=== PATIENT | female | born 1965 | race Caucasian/White ===

== ENCOUNTER → 2016-04-23 | Outpatient (CLI) | payer OTHER ==
[~2016-04-23] MED LIST: /ONDA4TA OR; /PANT40TA PO; /SUCR1TA PO; ATIV0.5T PO; ATIV1TAB10 PO; DRIS50002 PO; HYDR10T PO; LORA0.5T OR; PAXI10TA OR; PAXI20TA3 PO; PROT1TAB2 PO; ZOFR8TAB PO
== END ==
LOC: M WUC 08:20
PROVIDERS: ATTEND Family Medicine
DX: E55.9 Vitamin D deficiency, unspecified (principal)

== ENCOUNTER → 2016-06-22 | Outpatient (REF) | payer OTHER | LOC: M SFHCWAGY 11:56 | PROVIDERS: ATTEND Nurse Practitioner Women's Health | DX: Z12.4 Encounter for screening for malignant neoplasm of cervix (principal) ==

== ENCOUNTER → 2016-06-22 | Outpatient (CLI) | payer OTHER ==
--- NOTE | 2016-06-22 12:10 | REP ---
BILATERAL MAMMOGRAM: FAMILY HISTORY: Breast cancer in mother. COMPARISON: 07/07/2013 as well as other prior exams. Moderate fibroglandular tissue is seen bilaterally. On the right MLO view centrally is a rounded 3 mm nodular opacity not definitely seen on prior studies. There is a questionable nodule medially on the right CC view. No other mass is seen bilaterally and there are no suspicious clusters of microcalcifications. IMPRESSION: ACR 0 incomplete. Possible nodular opacity centrally on the right MLO view and medially on the right CC view. Recommend spot compression views and ultrasound to further evaluate. Also recommend MRI of the breasts considering the dense breast parenchyma and family history. BI-RADS/ACR category 0 mammogram. Incomplete: Additional imaging and/or prior images are needed before a final assessment can be assigned. This mammogram was interpreted with the aid of an FDA-approved computer-aided detection system. A. Negative x-ray reports should not delay biopsy if a dominant or clinically suspicious mass is present. B. Four to eight percent of cancers are not identified by x-ray. C. Adenosis and dense breasts may obscure an underlying neoplasm. The patient states she had a clinical breast exam in 05/2016. The patient letter being requested is M0.
== END ==
LOC: M WHC 09:52
PROVIDERS: ATTEND Nurse Practitioner Women's Health
DX: Z12.31 Encounter for screening mammogram for malignant neoplasm of breast (principal)

== ENCOUNTER → 2016-06-26 | Outpatient (CLI) | payer OTHER ==
--- NOTE | 2016-06-26 10:36 | REP ---
DIAGNOSTIC MAMMOGRAM RIGHT BREAST WITH A RIGHT BREAST ULTRASOUND: Diagnostic mammogram of the right breast performed with spot compression views obtained in various projections. Comparing to the recent exam of 06/22/2016 the suspected nodular opacity medially in the right breast compresses out to an unchanged appearance compared to other prior exams. I do not see a persistent nodule on the spot compression views. Real-time sonographic evaluation of the right breast medially demonstrates dilated ducts without a focal cystic or solid mass. IMPRESSION: ACR 2 benign. No persistent nodule on today's spot compression views. Ultrasound shows no nodule in the medial aspect of the right breast with multiple dilated ducts. Findings are benign. Recommend followup mammogram in 1 year. The patient letter being requested is M1. Signed by Ld Ivan MD 06/26/2016 07:45 P
== END ==
LOC: M RAD 09:21
PROVIDERS: ATTEND Nurse Practitioner Women's Health
DX: Z12.31 Encounter for screening mammogram for malignant neoplasm of breast (principal)
CPT/HCPCS: 76642; G0206

== ENCOUNTER → 2016-07-04 | Outpatient (CLI) | payer OTHER ==
--- NOTE | 2016-07-05 05:28 | REP ---
Clinical: Right pelvic and adnexal pain . Technique: Transabdominal pelvic ultrasound followed by transvaginal examination for better evaluation of the endometrium and adnexa with color Doppler evaluation of the ovaries. Findings: Bladder is unremarkable and measures 6.1 x 5.6 x 6.4 cm . Normal anteverted uterus measures 6.0 x 2.6 x 3.3 cm . The endometrial complex measures 3.8 mm thickness. No discrete uterine or endometrial abnormalities are appreciated. Few subcentimeter Nabothian cysts noted. Bilateral ovaries are normal in appearance and vascularity without evidence for torsion. Right ovary measures 2.5 x 1.5 x 1.3 cm ; R I = 0.54 . Left ovary measures 2.1 x 1.2 x 1.6 cm ; R I = 0.59 . No pelvic fluid or adnexal mass lesions. Impression: 1. Normal pelvic ultrasound Signed by Bryan Jose MD 07/05/2016 05:20 A
== END ==
LOC: M WHC 12:52
PROVIDERS: ATTEND Nurse Practitioner Women's Health
DX: R10.2 Pelvic and perineal pain (principal)

== ENCOUNTER 2016-08-29 09:02 | Emergency (ER) | payer OTHER ==
[~2016-08-29] VITALS: Ht 162.6 cm; Wt 171.6 kg
[~2016-08-29 09:02] MED LIST changes: +HYDR-643 PO; -HYDR10T PO; +PAXI20TA29 PO; -PAXI20TA3 PO
[2016-08-29 09:04] VITALS: BP 138/90
[2016-08-29] MEDS ORDERED: ZYRT10CA PO (09:30)
[2016-08-29] MEDS ORDERED: CEPH500C PO (09:30)
[2016-08-29] MEDS ORDERED: VITA200016 PO (09:30)
[2016-08-29] MEDS ORDERED: predniSONE 20 MG TAB PO ONE (10:30)
[2016-08-29] MEDS ORDERED: diphenhydrAMINE 50 MG CAP PO ONE (10:30)
[2016-08-29] MEDS ORDERED: PRED10TA2 PO (10:35)
[2016-08-29] MEDS ORDERED: BENA25TA10 PO (10:36)
== END 2016-08-29 11:00 | disposition home or self-care (01) ==
LOC: M ED 09:02
DX: L50.0 Allergic urticaria (principal); T78.40XA Allergy, unspecified, initial encounter; W57.XXXA Bitten or stung by nonvenomous insect and other nonvenomous arthropods, initial encounter; Y92.89 Other specified places as the place of occurrence of the external cause; Y93.89 Activity, other specified; Y99.9 Unspecified external cause status

== ENCOUNTER → 2016-09-16 | Outpatient (CLI) | payer OTHER ==
[~2016-09-16] MED LIST changes: +BENA25TA10 PO; +CEPH500C PO; +PRED10TA2 PO; +VITA200016 PO; +ZYRT10CA PO
[2016-09-19 00:09] LABS: IgG P18 AB Absent (.); IgG P23 AB Absent (.); IgG P28 AB Absent (.); IgG P30 AB Absent (.); IgG P41 AB Present (.); IgG P45 AB Absent (.); IgG P58 AB Absent (.); IgG P66 AB Absent (.); IgG P93 AB Absent (.); IgM P39 AB Absent (.); IgM P41 AB Present (.)
== END ==
LOC: M WUC 12:01
PROVIDERS: ATTEND Student in an Organized Health Care Education/Training Program
DX: R21 Rash and other nonspecific skin eruption (principal)

== ENCOUNTER → 2016-10-03 | Outpatient (CLI) | payer OTHER ==
--- NOTE | 2016-10-04 09:54 | REP ---
MAXILLOFACIAL CT WITHOUT CONTRAST: HISTORY: Smell disturbance. The sinuses are clear. The osteomeatal units are patent. The middle and inferior nasal turbinates are partially paradoxical. There is mild deviation of the nasal septum to the left. A spur is present arising from the left side of the nasal septum. The cribriform plate, medial hall of the orbits and optic canals are intact. There is aeration of the left anterior clinoid process. The carotid canals for a segment of the posterolateral hall of the sphenoid sinus. The sphenoid sinus septa insert into the internal carotid canal hall. IMPRESSION: There is no acute or chronic sinusitis. Signed by Grant Vargas MD 10/04/2016 10:26 A
== END ==
LOC: M RAD 17:29
PROVIDERS: ATTEND Otolaryngology
DX: R43.8 Other disturbances of smell and taste (principal)

== ENCOUNTER → 2017-02-05 | Outpatient (CLI) | payer OTHER | LOC: M EKG 13:56 | PROVIDERS: ATTEND Student in an Organized Health Care Education/Training Program | DX: I10 Essential (primary) hypertension (principal) ==

== ENCOUNTER → 2017-03-18 | Outpatient (CLI) | payer OTHER ==
[2017-03-18 10:11] LABS: CHOLESTEROL LEVEL 262 MG/DL (<200); CHOLESTEROL RISK RATIO 6.717 (<5); HDL CHOLESTEROL 39 MG/DL (>40); NON-HDL-C 223 MG/DL; TRIGLYCERIDES LEVEL 365 MG/DL (<150)
[2017-03-18 10:48] LABS: ESTIMATED AVERAGE GLUCOSE 137 MG/DL (60-110); HEMOGLOBIN A1c 6.4 %
== END ==
LOC: M WUC 08:10
DX: Z13.220 Encounter for screening for lipoid disorders (principal); Z13.1 Encounter for screening for diabetes mellitus
CPT/HCPCS: 83036

== ENCOUNTER → 2017-05-15 | Outpatient (CLI) | payer OTHER ==
[2017-05-15 19:58] LABS: ANION GAP 7 MEQ/L (8-16); BLOOD UREA NITROGEN 13 MG/DL (7-18); CALCIUM LEVEL 8.7 MG/DL (8.5-10.1); CARBON DIOXIDE LEVEL 26 MEQ/L (21-32); CHLORIDE LEVEL 107 MEQ/L (98-107); CREATININE FOR GFR 0.73 MG/DL (0.55-1.30); GLOMERULAR FILTRATION RATE > 60.0 (>51); GLUCOSE, FASTING 119 MG/DL (70-100); POTASSIUM SERUM 4.1 MEQ/L (3.5-5.1); SODIUM LEVEL 140 MEQ/L (136-145)
== END ==
LOC: M WUC 15:51
DX: I10 Essential (primary) hypertension (principal)

== ENCOUNTER → 2017-06-11 | Outpatient (CLI) | payer OTHER | LOC: M SMT 15:11 | DX: R05 Cough (principal) | CPT/HCPCS: 71046 ==

== ENCOUNTER → 2017-06-24 | Outpatient (REF) | payer OTHER | LOC: M SFHCWAGY 10:55 | DX: Z12.4 Encounter for screening for malignant neoplasm of cervix (principal) ==

== ENCOUNTER → 2017-06-24 | Outpatient (CLI) | payer OTHER | LOC: M WHC 10:36 | DX: Z12.31 Encounter for screening mammogram for malignant neoplasm of breast (principal); Z78.0 Asymptomatic menopausal state; Z80.3 Family history of malignant neoplasm of breast | CPT/HCPCS: 77067 ==

== ENCOUNTER → 2017-11-01 | Outpatient (REF) | payer OTHER | LOC: M SFHCPLAZ 10:25 | DX: E55.9 Vitamin D deficiency, unspecified (principal) ==

== ENCOUNTER → 2017-11-18 | Outpatient (CLI) | payer OTHER ==
[2017-11-18 19:12] LABS: TOTAL 25(OH) VITAMIN D 28.8 NG/ML (30.0-100.0)
== END ==
LOC: M WUC 14:02
DX: E55.9 Vitamin D deficiency, unspecified (principal)
CPT/HCPCS: 82306

== ENCOUNTER → 2017-11-18 | Outpatient (CLI) | payer OTHER | LOC: M WUC 14:07 | DX: M79.621 Pain in right upper arm (principal) | CPT/HCPCS: 73060 ==

== ENCOUNTER → 2017-12-24 | Outpatient (CLI) | payer OTHER ==
[2017-12-24 09:07] LABS: BASO % 0.3 % (0.0-1.0); EOS # 0.2 10^3/uL (0.0-0.50); EOS % 2.6 % (0.0-3.0); HEMATOCRIT 39.7 % (36.0-47.0); HEMOGLOBIN 13.6 g/dl (12.0-15.5); IMMATURE GRANULOCYTE % 0.1 % (0-3.0); LYMPH # 2.5 10^3/uL (1.5-4.5); LYMPH % 35.9 % (24.0-44.0); MEAN CORPUSCULAR HEMOGLOBIN 30.6 pg (27.0-33.0); MEAN CORPUSCULAR HGB CONC 34.3 g/dl (32.0-36.5); MEAN CORPUSCULAR VOLUME 89.4 fl (80.0-96.0); MONO # 0.5 10^3/uL (0.0-0.8); MONO % 7.9 % (0.0-5.0); NEUTROPHILS # 3.6 10^3/uL (1.8-7.7); NEUTROPHILS % 53.2 % (36.0-66.0); PLATELET COUNT, AUTOMATED 245 10^3/uL (150-450); RED BLOOD COUNT 4.44 10^6/uL (4.00-5.40); RED CELL DISTRIBUTION WIDTH 12.9 % (11.5-14.5); WHITE BLOOD COUNT 6.9 10^3/uL (4.0-10.0)
[2017-12-24 09:14] LABS: ESTIMATED AVERAGE GLUCOSE 140 MG/DL (60-110); HEMOGLOBIN A1c 6.5 %
[2017-12-24 09:37] LABS: ALBUMIN 4.2 GM/DL (3.2-5.2); ALBUMIN/GLOBULIN RATIO 1.31 (1.00-1.93); ALKALINE PHOSPHATASE 132 U/L (45-117); ALT/SGPT 107 U/L (12-78); ANION GAP 7 MEQ/L (8-16); AST/SGOT 50 U/L (7-37); BILIRUBIN,TOTAL 0.5 MG/DL (0.2-1.0); BLOOD UREA NITROGEN 12 MG/DL (7-18); CALCIUM LEVEL 9.2 MG/DL (8.5-10.1); CARBON DIOXIDE LEVEL 25 MEQ/L (21-32); CHLORIDE LEVEL 109 MEQ/L (98-107); CHOLESTEROL LEVEL 172 MG/DL (<200); CHOLESTEROL RISK RATIO 4.526 (<5); CREATININE FOR GFR 0.84 MG/DL (0.55-1.30); GLOMERULAR FILTRATION RATE > 60.0 (>51); GLUCOSE, FASTING 111 MG/DL (70-100); HDL CHOLESTEROL 38 MG/DL (>40); NON-HDL-C 134 MG/DL; POTASSIUM SERUM 4.3 MEQ/L (3.5-5.1); SODIUM LEVEL 141 MEQ/L (136-145); TOTAL PROTEIN 7.4 GM/DL (6.4-8.2); TRIGLYCERIDES LEVEL 430 MG/DL (<150)
== END ==
LOC: M WUC 08:04
DX: I10 Essential (primary) hypertension (principal); R73.01 Impaired fasting glucose; E78.5 Hyperlipidemia, unspecified
CPT/HCPCS: 80053

== ENCOUNTER → 2018-04-18 | Outpatient (CLI) | payer OTHER ==
[~2018-04-18] MED LIST changes: +CRES10TA32 PO; -DRIS50002 PO; +DRIS50003 PO; +LISI10TA4 PO
[2018-04-18 09:55] LABS: ALT/SGPT 186 U/L (12-78); BILIRUBIN,DIRECT 0.2 MG/DL (0.0-0.2); BILIRUBIN,TOTAL 0.6 MG/DL (0.2-1.0); CHOLESTEROL LEVEL 256 MG/DL (<200); CHOLESTEROL RISK RATIO 6.736 (<5); HDL CHOLESTEROL 38 MG/DL (>40); NON-HDL-C 218 MG/DL; TOTAL PROTEIN 7.4 GM/DL (6.4-8.2); TRIGLYCERIDES LEVEL 482 MG/DL (<150)
[2018-04-18 10:49] LABS: HEMOGLOBIN A1c 6.6 %
== END ==
LOC: M WUC 08:16
PROVIDERS: ATTEND Nurse Practitioner Family
DX: E78.5 Hyperlipidemia, unspecified (principal); E11.9 Type 2 diabetes mellitus without complications

== ENCOUNTER → 2018-05-30 | Outpatient (CLI) | payer OTHER ==
[~2018-05-30] MED LIST changes: -/ONDA4TA OR; -/PANT40TA PO; -/SUCR1TA PO; +CRES10TA PO; -CRES10TA32 PO; +ONDA-1 OR; +ONDA-227 PO; +SUCR1TAB56 PO; -ZOFR8TAB PO
[2018-05-30 10:04] LABS: ALT/SGPT 157 U/L (12-78); BILIRUBIN,DIRECT < 0.1 MG/DL (0.0-0.2); BILIRUBIN,TOTAL 0.4 MG/DL (0.2-1.0); TOTAL PROTEIN 7.5 GM/DL (6.4-8.2)
[2018-05-30 10:29] LABS: HEPATITIS B SURFACE ANTIGEN NEGATIVE (NEGATIVE)
[2018-05-30 10:55] LABS: HEPATITIS C VIRUS ABY INDEX 0.1 INDEX (<0.8)
[2018-05-30 10:56] LABS: HEPATITIS B CORE ANTIBODY IGM NEGATIVE (NEGATIVE)
[2018-05-30 10:58] LABS: HEPATITIS A ANTIBODY IGM NEGATIVE (NEGATIVE)
== END ==
LOC: M WUC 08:15
PROVIDERS: ATTEND Nurse Practitioner Family
DX: R94.5 Abnormal results of liver function studies (principal)

== ENCOUNTER → 2018-06-09 | Outpatient (CLI) | payer OTHER ==
[2018-06-09 19:21] LABS: BLOOD UREA NITROGEN 14 MG/DL (7-18); CALCIUM LEVEL 9.4 MG/DL (8.5-10.1); CARBON DIOXIDE LEVEL 27 MEQ/L (21-32); CHLORIDE LEVEL 106 MEQ/L (98-107); CREATININE FOR GFR 0.85 MG/DL (0.55-1.30); GLOMERULAR FILTRATION RATE > 60.0 (>51); GLUCOSE, FASTING 142 MG/DL (70-100); POTASSIUM SERUM 4.3 MEQ/L (3.5-5.1); SODIUM LEVEL 138 MEQ/L (136-145)
== END ==
LOC: M WUC 10:58
PROVIDERS: ATTEND Nurse Practitioner Family
DX: I10 Essential (primary) hypertension (principal)

== ENCOUNTER → 2018-06-27 | Outpatient (CLI) | payer OTHER ==
--- NOTE | 2018-06-27 11:58 | REPMRS ---
Patient History The patient states she had a clinical breast exam in 06/2018. Patient is postmenopausal. Family history of breast cancer under age 50 in mother. Took hormonal contraceptives for 20 years. 3D TOMOSYNTHESIS WAS PERFORMED. Digital Woman Screen Mammo: June 27, 2018 - Exam #: [id number] Bilateral CC and MLO view(s) were taken. Technologist: Juanis Burnette, Technologist Prior study comparison: June 24, 2017, digital woman screen mammo performed at [facility]. June 26, 2016, right breast digital mammo diagnostic unilateral, performed at [facility]. FINDINGS: The breast tissue is heterogeneously dense. This may lower the sensitivity of mammography. There has been no change in the appearance of the mammogram from the prior studies. There is a moderate amount of residual fibroglandular tissue which is fairly symmetric. There is no interval development of dominant mass, areas of architectural distortion, or clustered microcalcification typical of malignancy. Assessment: BI-RADS/ACR category 1 mammogram. Negative Mammogram. Recommendation Routine screening mammogram in 1 year (for women over age 40). This mammogram was interpreted with the aid of an FDA-approved computer-aided dectection system. Electronically Signed By: Ld Ivan MD 06/27/18 [id number]
== END ==
LOC: M WHC 08:43
PROVIDERS: ATTEND Nurse Practitioner Women's Health
DX: Z12.31 Encounter for screening mammogram for malignant neoplasm of breast (principal); Z80.3 Family history of malignant neoplasm of breast; Z92.0 Personal history of contraception; Z78.0 Asymptomatic menopausal state

== ENCOUNTER → 2018-09-25 | Outpatient (CLI) | payer OTHER ==
[2018-09-25 15:10] LABS: BASO % 0.1 % (0.0-1.0); EOS # 0.2 10^3/uL (0.0-0.50); EOS % 2.7 % (0.0-3.0); HEMATOCRIT 41.1 % (36.0-47.0); HEMOGLOBIN 13.8 g/dl (12.0-15.5); LYMPH # 3.3 10^3/uL (1.5-4.5); LYMPH % 46.1 % (24.0-44.0); MEAN CORPUSCULAR HEMOGLOBIN 30.6 pg (27.0-33.0); MEAN CORPUSCULAR HGB CONC 33.6 g/dl (32.0-36.5); MEAN CORPUSCULAR VOLUME 91.1 fl (80.0-96.0); MONO # 0.7 10^3/uL (0.0-0.8); MONO % 9.7 % (0.0-5.0); NEUTROPHILS # 2.9 10^3/uL (1.8-7.7); NEUTROPHILS % 41.1 % (36.0-66.0); PLATELET COUNT, AUTOMATED 292 10^3/uL (150-450); RED BLOOD COUNT 4.51 10^6/uL (4.00-5.40); WHITE BLOOD COUNT 7.1 10^3/uL (4.0-10.0)
[2018-09-25 15:37] LABS: ALBUMIN 3.9 GM/DL (3.2-5.2); ALT/SGPT 147 U/L (12-78); BILIRUBIN,TOTAL 0.4 MG/DL (0.2-1.0); BLOOD UREA NITROGEN 12 MG/DL (7-18); CALCIUM LEVEL 9.1 MG/DL (8.5-10.1); CARBON DIOXIDE LEVEL 26 MEQ/L (21-32); CHLORIDE LEVEL 104 MEQ/L (98-107); CREATININE FOR GFR 0.91 MG/DL (0.55-1.30); GLOMERULAR FILTRATION RATE > 60.0 (>51); GLUCOSE, FASTING 101 MG/DL (70-100); LIPASE 319 U/L (73-393); POTASSIUM SERUM 3.7 MEQ/L (3.5-5.1); SODIUM LEVEL 139 MEQ/L (136-145); TOTAL PROTEIN 8.1 GM/DL (6.4-8.2)
== END ==
LOC: M WUC 13:39
PROVIDERS: ATTEND Physician Assistant
DX: A08.4 Viral intestinal infection, unspecified (principal)

== ENCOUNTER → 2019-01-13 | Outpatient (CLI) | payer OTHER ==
[2019-01-13 09:45] LABS: BASO % 0.5 % (0.0-1.0); EOS # 0.2 10^3/uL (0.0-0.5); EOS % 2.4 % (0.0-3.0); HEMATOCRIT 44.6 % (36.0-47.0); HEMOGLOBIN 14.5 g/dl (12.0-15.5); LYMPH # 2.7 10^3/uL (1.5-5.0); LYMPH % 31.7 % (24.0-44.0); MEAN CORPUSCULAR HEMOGLOBIN 30.4 pg (27.0-33.0); MEAN CORPUSCULAR HGB CONC 32.5 g/dl (32.0-36.5); MEAN CORPUSCULAR VOLUME 93.5 fl (80.0-96.0); MONO # 0.8 10^3/uL (0.0-0.8); MONO % 9.1 % (0.0-5.0); NEUTROPHILS # 4.8 10^3/uL (1.5-8.5); NEUTROPHILS % 55.9 % (36.0-66.0); PLATELET COUNT, AUTOMATED 285 10^3/uL (150-450); RED BLOOD COUNT 4.77 10^6/uL (4.00-5.40); WHITE BLOOD COUNT 8.5 10^3/uL (4.0-10.0)
[2019-01-13 10:49] LABS: ALBUMIN 3.8 GM/DL (3.2-5.2); ALT/SGPT 113 U/L (12-78); BILIRUBIN,TOTAL 0.5 MG/DL (0.2-1.0); BLOOD UREA NITROGEN 13 MG/DL (7-18); CALCIUM LEVEL 9.2 MG/DL (8.5-10.1); CARBON DIOXIDE LEVEL 28 MEQ/L (21-32); CHLORIDE LEVEL 103 MEQ/L (98-107); CHOLESTEROL LEVEL 421 MG/DL (<200); CHOLESTEROL RISK RATIO 12.382 (<5); GLOMERULAR FILTRATION RATE > 60.0 (>51); GLUCOSE, FASTING 116 MG/DL (70-100); HDL CHOLESTEROL 34 MG/DL (>40); NON-HDL-C 387 MG/DL; POTASSIUM SERUM 4.6 MEQ/L (3.5-5.1); SODIUM LEVEL 139 MEQ/L (136-145); TOTAL 25(OH) VITAMIN D 38.2 NG/ML (30.0-100.0); TOTAL PROTEIN 7.9 GM/DL (6.4-8.2); TRIGLYCERIDES LEVEL 438 MG/DL (<150)
== END ==
LOC: M WUC 08:11
PROVIDERS: ATTEND Physician Assistant
DX: I10 Essential (primary) hypertension (principal); E55.9 Vitamin D deficiency, unspecified; F17.210 Nicotine dependence, cigarettes, uncomplicated

== ENCOUNTER → 2019-03-05 | Outpatient (CLI) | payer OTHER ==
[2019-03-05 13:46] LABS: ALBUMIN 4.1 GM/DL (3.2-5.2); ALT/SGPT 111 U/L (12-78); BILIRUBIN,TOTAL 0.5 MG/DL (0.2-1.0); BLOOD UREA NITROGEN 14 MG/DL (7-18); CARBON DIOXIDE LEVEL 23 MEQ/L (21-32); CHLORIDE LEVEL 106 MEQ/L (98-107); CHOLESTEROL LEVEL 172 MG/DL (<200); CHOLESTEROL RISK RATIO 4.526 (<5); CREATININE FOR GFR 0.95 MG/DL (0.55-1.30); GLOMERULAR FILTRATION RATE > 60.0 (>51); GLUCOSE, FASTING 118 MG/DL (70-100); HDL CHOLESTEROL 38 MG/DL (>40); LDL CHOLESTEROL 74 MG/DL (<100); NON-HDL-C 134 MG/DL; POTASSIUM SERUM 4.8 MEQ/L (3.5-5.1); SODIUM LEVEL 139 MEQ/L (136-145); TOTAL PROTEIN 7.9 GM/DL (6.4-8.2); TRIGLYCERIDES LEVEL 300 MG/DL (<150)
[2019-03-05 14:04] LABS: HEMOGLOBIN A1c 7.1 %
== END ==
LOC: M WUC 08:05
PROVIDERS: ATTEND Physician Assistant Medical
DX: E78.2 Mixed hyperlipidemia (principal); R73.01 Impaired fasting glucose

== ENCOUNTER → 2019-07-06 | Outpatient (REF) | payer OTHER | LOC: M SFHCWAGY 17:58 | PROVIDERS: ATTEND Nurse Practitioner Women's Health | DX: Z12.4 Encounter for screening for malignant neoplasm of cervix (principal) ==

== ENCOUNTER → 2019-07-06 | Outpatient (CLI) | payer OTHER ==
--- NOTE | 2019-07-06 09:58 | REPMRS ---
Patient History The patient states she had a clinical breast exam in June 2019. Family history of breast cancer under age 50 in mother. Took hormonal contraceptives for 20 years. Digital Woman Screen Mammo: July 06, 2019 - Exam #: [id number] Bilateral CC and MLO view(s) were taken. Technologist: Gris Ji, Technologist Prior study comparison: June 27, 2018, bilateral digital woman screen mammo performed at [facility]. June 24, 2017, digital woman screen mammo performed at [facility]. June 22, 2016, digital woman screen mammo performed at [facility]. FINDINGS: There are scattered fibroglandular densities. The Volpara volumetric breast density category is: B. There is a moderate amount of residual fibroglandular tissue which is fairly symmetric. There is no interval development of dominant mass, architectural distortion, or grouped microcalcification typical of malignancy. There has been no change in the appearance of the mammogram from the prior studies. 3-D tomosynthesis shows no additional findings. Assessment: BI-RADS/ACR category 1 mammogram. Negative Mammogram. Recommendation Routine screening mammogram of both breasts in 1 year (for women over age 40). This patient's Lifetime Breast Cancer RIsk is estimated at 13.7 %. This mammogram was interpreted with the aid of an FDA-approved computer-aided dectection system. Electronically Signed By: Da Wakefield MD 07/06/19 0958
== END ==
LOC: M WHC 08:15
PROVIDERS: ATTEND Nurse Practitioner Women's Health
DX: Z12.31 Encounter for screening mammogram for malignant neoplasm of breast (principal)

== ENCOUNTER → 2019-08-03 | Outpatient (CLI) | payer OTHER ==
[2019-08-03 12:57] LABS: MALB URINE SIEMENS 87.1 MG/L; MAU/CREAT RATIO 49.7 MCG/MG (0.0-30.0)
[2019-08-03 13:37] LABS: HEMOGLOBIN A1c 6.8 %
== END ==
LOC: M WUC 09:19
PROVIDERS: ATTEND Physician Assistant Medical
DX: E11.9 Type 2 diabetes mellitus without complications (principal)

== ENCOUNTER → 2019-11-25 | Outpatient (CLI) | payer OTHER ==
[2019-11-25 11:47] LABS: ALBUMIN 3.8 GM/DL (3.2-5.2); ALT/SGPT 188 U/L (12-78); BILIRUBIN,TOTAL 0.3 MG/DL (0.2-1.0); BLOOD UREA NITROGEN 10 MG/DL (7-18); CALCIUM LEVEL 9.5 MG/DL (8.5-10.1); CARBON DIOXIDE LEVEL 25 MEQ/L (21-32); CHLORIDE LEVEL 107 MEQ/L (98-107); CHOLESTEROL LEVEL 201 MG/DL (<200); CHOLESTEROL RISK RATIO 4.785 (<5); GLOMERULAR FILTRATION RATE > 60.0 (>51); GLUCOSE, FASTING 114 MG/DL (70-100); HDL CHOLESTEROL 42 MG/DL (>40); LDL CHOLESTEROL 98 MG/DL (<100); NON-HDL-C 159 MG/DL; POTASSIUM SERUM 4.4 MEQ/L (3.5-5.1); SODIUM LEVEL 137 MEQ/L (136-145); TOTAL PROTEIN 7.8 GM/DL (6.4-8.2); TRIGLYCERIDES LEVEL 305 MG/DL (<150)
[2019-11-25 12:15] LABS: HEMOGLOBIN A1c 6.5 %
== END ==
LOC: M WUC 08:12
PROVIDERS: ATTEND Physician Assistant Medical
DX: E11.9 Type 2 diabetes mellitus without complications (principal); E78.2 Mixed hyperlipidemia

== ENCOUNTER → 2020-03-16 | Outpatient (CLI) | payer OTHER ==
[~2020-03-16] MED LIST changes: +LISI10TA22 PO; -LISI10TA4 PO
[2020-03-16 11:09] LABS: BILIRUBIN,DIRECT 0.1 MG/DL (0.0-0.2); BILIRUBIN,TOTAL 0.3 MG/DL (0.2-1.0); TOTAL PROTEIN 7.9 GM/DL (6.4-8.2)
== END ==
LOC: M PLALAB 08:11
PROVIDERS: ATTEND Physician Assistant Medical
DX: R94.5 Abnormal results of liver function studies (principal)

== ENCOUNTER → 2020-05-12 | Outpatient (CLI) | payer OTHER ==
--- NOTE | 2020-05-12 09:17 | REP ---
INDICATION: PEPTIC ULCER, ABD PAIN. COMPARISON: None. TECHNIQUE: Multiple right upper quadrant abdominal ultrasonography images. FINDINGS: There is no cholelithiasis, gallbladder wall thickening or pericholecystic fluid. There is no intrahepatic or extrahepatic biliary duct dilatation. The common biliary duct measures 3.6 mm in diameter. This is normal. The hepatic parenchyma is mildly hyperechoic, compatible with hepato steatosis. There are no hepatic masses or cysts. The pancreas is mostly obscured by bowel gas. The visualized portions of the pancreas are unremarkable. Four The right kidney measures 10.8 x 6.1 x 4.9 cm and is normal size. There is no right renal solid or cystic mass. There is no right renal calculus or hydronephrosis. The abdominal aorta is obscured. There is no right upper quadrant free fluid. IMPRESSION: Findings are compatible with hepato steatosis. There are no hepatic masses or cysts. No biliary duct dilatation. The pancreas is obscured by bowel gas. Otherwise, negative abdominal right upper quadrant ultrasound. <Electronically signed by Ld Hanson > 05/12/20 [id number]
[2020-05-12 10:33] LABS: INR 0.88; PROTHROMBIN TIME 12.2 SECONDS (12.5-14.3)
[2020-05-12 10:34] LABS: PARTIAL THROMBOPLASTIN TIME 40.8 SECONDS (24.2-38.5)
[2020-05-12 10:55] LABS: ALT/SGPT 182 U/L (12-78); BILIRUBIN,DIRECT 0.2 MG/DL (0.0-0.2); BILIRUBIN,TOTAL 0.3 MG/DL (0.2-1.0); FERRITIN 358 NG/ML (8-252); IRON (FE) 77 UG/DL (50-170); PERCENT SATURATION 25.6 % (13.2-45.0); TOTAL IRON BINDING CAPACITY 301 UG/DL (250-450); TOTAL PROTEIN 7.9 GM/DL (6.4-8.2)
[2020-05-13 10:44] LABS: ALPHA-1-GLOBULINS 0.32 GM/DL (0.17-0.41); ALPHA-2-GLOBULINS 0.92 GM/DL (0.42-0.99); ALPHA-2-GLOBULINS % 11.7 % (7.1-11.8); BETA-2-GLOBULINS 0.45 GM/DL (0.19-0.55); BETA-2-GLOBULINS % 5.7 % (3.2-6.5); GAMMA GLOBULIN % 16.6 % (11.1-18.8); GAMMA GLOBULINS 1.31 GM/DL (0.65-1.58)
[2020-05-13 11:33] LABS: HEPATITIS A ANTIBODY IGM NEGATIVE (NEGATIVE); HEPATITIS B SURFACE ANTIGEN NEGATIVE (NEGATIVE); HEPATITIS C VIRUS ABY INDEX < 0.0 INDEX (<0.8)
[2020-05-13 11:34] LABS: HEPATITIS B SURFACE ANTIBODY NEGATIVE (POSITIVE)
== END ==
LOC: M RAD 08:39
PROVIDERS: ATTEND Physician Assistant Medical
DX: R94.5 Abnormal results of liver function studies (principal)

== ENCOUNTER → 2020-07-12 | Outpatient (CLI) | payer OTHER ==
--- NOTE | 2020-07-12 10:59 | REPMRS ---
Patient History The patient states she had a clinical breast exam in June 2020. Family history of breast cancer under age 50 in mother. Took hormonal contraceptives for 20 years. Moderna vaccine #1 03/31/20 left arm. #2 04/28/20 left arm. CBE: 07/12/20 Digital Woman Screen Mammo: July 12, 2020 - Exam #: [id number] Bilateral CC and MLO view(s) were taken. Technologist: RT Jaz Prior study comparison: July 06, 2019, bilateral digital woman screen mammo performed at [facility]. June 27, 2018, bilateral digital woman screen mammo performed at [facility]. June 24, 2017, digital woman screen mammo performed at [facility]. FINDINGS: There are scattered fibroglandular densities. The Volpara volumetric breast density category is: B. There is a moderate amount of residual fibroglandular tissue which is fairly symmetric. There is no interval development of dominant mass, architectural distortion, or grouped microcalcification typical of malignancy. There has been no change in the appearance of the mammogram from the prior studies. 3-D tomosynthesis shows no additional findings. Assessment: BI-RADS/ACR category 1 mammogram. Negative Mammogram. Recommendation Routine screening mammogram of both breasts in 1 year (for women over age 40). This patient's [facility] Lifetime Breast Cancer RIsk is estimated at 13.4 %. This mammogram was interpreted with the aid of an FDA-approved computer-aided dectection system. Electronically Signed By: Da Wakefield MD 07/12/20 0716
== END ==
LOC: M WHC 07:20
PROVIDERS: ATTEND Nurse Practitioner Women's Health
DX: Z12.31 Encounter for screening mammogram for malignant neoplasm of breast (principal); Z80.3 Family history of malignant neoplasm of breast

== ENCOUNTER → 2020-09-21 | Outpatient (REF) | payer OTHER ==
[2020-09-21 17:53] LABS: MALB URINE SIEMENS 31.8 MG/L; MAU/CREAT RATIO 18.2 MCG/MG (0.0-30.0)
== END ==
LOC: M LAB REF 17:04
PROVIDERS: ATTEND Nurse Practitioner Family
DX: E11.9 Type 2 diabetes mellitus without complications (principal)

== ENCOUNTER → 2020-11-21 | Outpatient (REF) | payer OTHER ==
[2020-11-21 17:21] LABS: ALT/SGPT 80 U/L (12-78); BILIRUBIN,TOTAL 0.3 MG/DL (0.2-1.0); BLOOD UREA NITROGEN 14 MG/DL (7-18); CALCIUM LEVEL 9.8 MG/DL (8.5-10.1); CARBON DIOXIDE LEVEL 30 MEQ/L (21-32); CHLORIDE LEVEL 107 MEQ/L (98-107); CHOLESTEROL LEVEL 325 MG/DL (<200); CHOLESTEROL RISK RATIO 7.926 (<5); GLOMERULAR FILTRATION RATE > 60.0 (>51); GLUCOSE, FASTING 94 MG/DL (70-100); HDL CHOLESTEROL 41 MG/DL (>40); NON-HDL-C 284 MG/DL; SODIUM LEVEL 141 MEQ/L (136-145); TOTAL PROTEIN 8.1 GM/DL (6.4-8.2); TRIGLYCERIDES LEVEL 434 MG/DL (<150)
[2020-11-21 17:30] LABS: MALB URINE SIEMENS 42.6 MG/L; MAU/CREAT RATIO 25.6 MCG/MG (0.0-30.0)
[2020-11-21 18:01] LABS: HEMOGLOBIN A1c 6.1 %
== END ==
LOC: M PLALAB 16:42
PROVIDERS: ATTEND Physician Assistant Medical
DX: E11.9 Type 2 diabetes mellitus without complications (principal); E78.2 Mixed hyperlipidemia; R94.5 Abnormal results of liver function studies

== ENCOUNTER → 2020-12-12 | Outpatient (CLI) | payer OTHER ==
[2020-12-12 14:49] LABS: ALBUMIN 3.9 GM/DL (3.2-5.2); BILIRUBIN,DIRECT 0.1 MG/DL (0.0-0.2); BILIRUBIN,TOTAL 0.4 MG/DL (0.2-1.0); TOTAL PROTEIN 7.9 GM/DL (6.4-8.2)
== END ==
LOC: M PLALAB 11:07
PROVIDERS: ATTEND Nurse Practitioner Family
DX: R94.5 Abnormal results of liver function studies (principal); K75.81 Nonalcoholic steatohepatitis (NASH)

== ENCOUNTER → 2021-10-16 | Outpatient (CLI) | payer OTHER ==
[2021-10-16 08:07] LABS: MALB URINE SIEMENS 41.8 MG/L; MAU/CREAT RATIO 20.9 MCG/MG (0.0-30.0)
[2021-10-16 08:12] LABS: ALBUMIN 3.7 GM/DL (3.2-5.2); ALT/SGPT 74 U/L (12-78); BILIRUBIN,TOTAL 0.4 MG/DL (0.2-1.0); BLOOD UREA NITROGEN 14 MG/DL (7-18); CALCIUM LEVEL 9.5 MG/DL (8.5-10.1); CARBON DIOXIDE LEVEL 28 MEQ/L (21-32); CHLORIDE LEVEL 105 MEQ/L (98-107); CHOLESTEROL LEVEL 309 MG/DL (<200); CHOLESTEROL RISK RATIO 8.351 (<5); CREATININE FOR GFR 0.95 MG/DL (0.55-1.30); GLOMERULAR FILTRATION RATE > 60.0 (>51); GLUCOSE, FASTING 134 MG/DL (70-100); HDL CHOLESTEROL 37 MG/DL (>40); LDL CHOLESTEROL 197 MG/DL (<100); NON-HDL-C 272 MG/DL; SODIUM LEVEL 136 MEQ/L (136-145); TOTAL PROTEIN 7.5 GM/DL (6.4-8.2); TRIGLYCERIDES LEVEL 374 MG/DL (<150)
[2021-10-16 09:14] LABS: HEMOGLOBIN A1c 6.3 %
== END ==
LOC: M LAB 07:00
PROVIDERS: ATTEND Nurse Practitioner Family
DX: E11.9 Type 2 diabetes mellitus without complications (principal); E78.2 Mixed hyperlipidemia; R94.5 Abnormal results of liver function studies

== ENCOUNTER → 2021-11-15 | Outpatient (REF) | payer OTHER | LOC: M SFHCWAGY 12:58 | PROVIDERS: ATTEND Nurse Practitioner Family | DX: Z12.4 Encounter for screening for malignant neoplasm of cervix (principal); Z01.419 Encounter for gynecological examination (general) (routine) without abnormal findings; Z77.9 Other contact with and (suspected) exposures hazardous to health | CPT/HCPCS: 87624; G0123 ==

== ENCOUNTER → 2021-11-15 | Outpatient (CLI) | payer OTHER | LOC: M WHC 10:01 | PROVIDERS: ATTEND Nurse Practitioner Family | DX: Z12.31 Encounter for screening mammogram for malignant neoplasm of breast (principal); Z80.3 Family history of malignant neoplasm of breast ==

== ENCOUNTER 2022-05-01 00:31 | Emergency (ER) | payer OTHER ==
[~2022-05-01] VITALS: Ht 162.6 cm; Wt 87.4 kg
[~2022-05-01 00:31] MED LIST changes: -PAXI20TA29 PO; +PAXI20TA30 PO
[2022-05-01 01:21] LABS: APPEARANCE, URINE CLEAR (CLEAR); BACTERIA, URINE AUTO NEGATIVE (NEGATIVE); BILIRUBIN, URINE AUTO NEGATIVE (NEGATIVE); BLOOD, URINE BLOOD 1+ (NEGATIVE); COLOR, URINE YELLOW (YELLOW); GLUCOSE, URINE (UA) AUTO NEGATIVE (NEGATIVE); KETONE, URINE AUTO NEGATIVE (NEGATIVE); LEUKOCYTE ESTERASE, URINE AUTO NEGATIVE (NEGATIVE); MUCUS, URINE SMALL (NEGATIVE); NITRITE, URINE AUTO NEGATIVE (NEGATIVE); PROTEIN, URINE AUTO 2+ mg/dL (NEGATIVE); RBC, URINE AUTO 4 /HPF (0-3); SPECIFIC GRAVITY URINE AUTO 1.021 (1.002-1.035); SQUAMOUS EPITHELIAL CELL UR AU 1 /HPF (0-6); UROBILINOGEN, URINE AUTO 0.2 mg/dL (0.0-2.0); WBC, URINE AUTO 1 /HPF (0-3)
[2022-05-01 01:23] LABS: BASO % 0.4 % (0.0-1.0); EOS # 0.4 10^3/uL (0.0-0.5); EOS % 4.6 % (0.0-3.0); HEMATOCRIT 41.9 % (36.0-47.0); HEMOGLOBIN 13.7 g/dl (12.0-15.5); LYMPH # 3.6 10^3/uL (1.5-5.0); LYMPH % 41.6 % (24.0-44.0); MEAN CORPUSCULAR HGB CONC 32.7 g/dl (32.0-36.5); MEAN CORPUSCULAR VOLUME 91.7 fl (80.0-96.0); MONO # 0.6 10^3/uL (0.0-0.8); MONO % 7.4 % (2.0-8.0); NEUTROPHILS # 3.9 10^3/uL (1.5-8.5); NEUTROPHILS % 45.9 % (36.0-66.0); PLATELET COUNT, AUTOMATED 241 10^3/uL (150-450); RED BLOOD COUNT 4.57 10^6/uL (4.00-5.40); WHITE BLOOD COUNT 8.6 10^3/uL (4.0-10.0)
[2022-05-01 01:55] LABS: BLOOD UREA NITROGEN 12 MG/DL (9-23); CALCIUM LEVEL 9.1 MG/DL (8.5-10.1); CARBON DIOXIDE LEVEL 26 MMOL/L (20-31); CHLORIDE LEVEL 104 MMOL/L (98-107); CREATININE FOR GFR 0.84 MG/DL (0.55-1.30); GLOMERULAR FILTRATION RATE > 60.0 (>51); GLUCOSE, FASTING 158 MG/DL (60-100); POTASSIUM SERUM 3.9 MMOL/L (3.5-5.1); SODIUM LEVEL 139 MMOL/L (136-145)
[2022-05-01] MEDS ORDERED: ONDANSETRON 4MG 2ML VIAL IV ONE (07:20)
[2022-05-01] MEDS ORDERED: KETOROLAC 30 MG/ML 1ML VIAL IV ONE (07:20)
[2022-05-01] MEDS ORDERED: NS 1,000 ML IV ONE (07:20)
[2022-05-01] MEDS ORDERED: LIDOCAINE 5% (LIDODERM) PATCH TD ONE (08:20)
[2022-05-01] MEDS ORDERED: ASPE4PAD TOP (08:24)
[2022-05-01] MEDS ORDERED: METH-1165 PO (08:24)
[2022-05-01 08:58] VITALS: BP 154/72
== END 2022-05-01 09:02 | disposition home or self-care (01) ==
LOC: M ED 00:31
DX: R10.9 Unspecified abdominal pain (principal); M54.50 Low back pain, unspecified; I10 Essential (primary) hypertension; K21.9 Gastro-esophageal reflux disease without esophagitis; E78.5 Hyperlipidemia, unspecified; F17.200 Nicotine dependence, unspecified, uncomplicated; Z88.8 Allergy status to other drugs, medicaments and biological substances; Z79.899 Other long term (current) drug therapy
CPT/HCPCS: 74176; 80048; 81001; 85025; 96374; 96375; 99283; J1885; J2405

== ENCOUNTER → 2023-05-17 | Outpatient (CLI) | payer OTHER ==
[~2023-05-17] MED LIST changes: +ASPE4PAD TOP; +METH-1165 PO
== END ==
LOC: M WHC 10:41
PROVIDERS: ATTEND Nurse Practitioner Family
DX: Z12.31 Encounter for screening mammogram for malignant neoplasm of breast (principal)

== ENCOUNTER → 2023-06-30 | Outpatient (REF) | payer OTHER | LOC: M LAB REF 17:47 | PROVIDERS: ATTEND Registered Nurse | DX: H10.9 Unspecified conjunctivitis (principal) ==

== ENCOUNTER → 2025-01-08 | Outpatient (REF) | payer OTHER ==
[2025-01-12 14:15] LABS: HPV APTIMA Not Detected (Not Detected)
== END ==
LOC: M PLALAB 10:42
PROVIDERS: ATTEND Physician Assistant
DX: Z01.419 Encounter for gynecological examination (general) (routine) without abnormal findings (principal)
CPT/HCPCS: 87624; G0123

== ENCOUNTER → 2025-01-08 | Outpatient (CLI) | payer OTHER | LOC: M WHC 10:02 | PROVIDERS: ATTEND Physician Assistant | DX: Z12.31 Encounter for screening mammogram for malignant neoplasm of breast (principal); R92.323 Mammographic fibroglandular density, bilateral breasts ==